=== PATIENT | male | born 1985 | race Caucasian/White ===

== ENCOUNTER 2016-10-29 18:21 | Emergency (ER) | payer MEDICAID ==
[~2016-10-29] VITALS: Ht 167.6 cm; Wt 75.4 kg
[2016-10-29] MEDS ORDERED: SODIUM CHLORIDE FLUSH 10ML SYR IVF ONE (19:00)
[2016-10-29] MEDS ORDERED: ASPIRIN 81 MG TABLET CHEW PO ONE (19:00)
[2016-10-29] MEDS ORDERED: NITROGLYCERIN SINGLE TAB 0.4 MG SL PRN (19:00)
[2016-10-29 19:20] LABS: BLOOD UREA NITROGEN 20 mg/dL (7-18)
[2016-10-29 19:24] LABS: IS PT STATUS REG ER OR PRE ER? YES
[2016-10-29] MEDS ORDERED: NITROGLYCERIN SINGLE TAB 0.4 MG SL ONE (19:54)
[2016-10-29] MEDS ORDERED: ASPIRIN 81 MG TABLET CHEW ONE (19:55)
[2016-10-29] MEDS ORDERED: LORazepam 2 MG/ML, 1ML ONE (20:29)
[2016-10-29] MEDS ORDERED: LORazepam 2 MG/ML, 1ML IVPush ONE (20:30)
[2016-10-29] MEDS ORDERED: SODIUM CHLORIDE 0.9% 1,000ML IVBOLUS ONE (20:30)
[2016-10-29 21:09] LABS: IS PT STATUS REG ER OR PRE ER? YES
[2016-10-29 21:39] VITALS: BP 143/97
== END 2016-10-29 21:49 | disposition home or self-care (01) ==
LOC: ED 21:43
DX: R07.89 Other chest pain (principal); F15.10 Other stimulant abuse, uncomplicated; F41.1 Generalized anxiety disorder; F17.210 Nicotine dependence, cigarettes, uncomplicated
CPT/HCPCS: 36415; 71010; 80048; 82040; 84484; 85025; 93005; 96361; 96374; 99285; J2060; J7030

== ENCOUNTER 2016-12-05 11:25 | Emergency (ER) | payer MEDICAID ==
[~2016-12-05] VITALS: Ht 167.6 cm; Wt 76.9 kg
[2016-12-05 11:26] VITALS: BP 122/76
[2016-12-05] MEDS ORDERED: IBUPROFEN 200 MG TABLET PO ONE (12:30)
[2016-12-05] MEDS ORDERED: IBUPROFEN 200 MG TABLET ONE (12:37)
== END 2016-12-05 13:45 | disposition home or self-care (01) ==
LOC: ED 13:42
DX: R07.89 Other chest pain (principal); R09.1 Pleurisy
CPT/HCPCS: 71010; 93005; 99284